=== PATIENT | female | born 1995 | race African-American/Black ===

== ENCOUNTER 2018-12-08 11:10 | Emergency (ER) | payer OTHER ==
[~2018-12-08] VITALS: Ht 167.6 cm; Wt 73.6 kg
[2018-12-08 11:23] VITALS: BP 115/69
--- NOTE | 2018-12-08 11:33 | NUR ---
PT AMBULATED TO ER BED 06
--- NOTE | 2018-12-08 11:40 | NUR ---
PT BIB SELF TO THE ED WITH THE CHIEF C/O HEADACHE AND LEFT NOSE BLEED SINCE LAST NIGHT. HAS NOT TAKEN ANY MEDS FOR PAIN. PT IS 29 WEEKS . HEART TONE HEARD TO 144 B/MIN. PT IS TAKING VITAMINS. REPORTS VOMIT X2. NO BLOOD IN VOMIT. DENIES NAUSEA OR DIARRHEA AT THIS TIME. DENIES ANY RECENT FEVER. DENIES ANY PAIN AT THIS TIME. POSITIONED FOR COMFORT. VSS ON MONITOR.
--- NOTE | 2018-12-08 11:59 | NUR ---
PT BEING EVALUATED BY ER AT THIS TIME.
[2018-12-08] MEDS ORDERED: ACETAMINOPHEN 325 MG TAB PO ONE (12:05)
[2018-12-08] MEDS ORDERED: NACL 0.9% 1,000 ML IV ONE (12:05)
--- NOTE | 2018-12-08 12:16 | NUR ---
LAB AT THE BEDSIDE.
[2018-12-08 12:34] LABS: BASOPHILS % (AUTO) 0.3 % (0.0-2.0); EOSINOPHILS # (AUTO) 0.1 K/uL (0-0.4); HEMATOCRIT 32.8 % (36-48); HEMOGLOBIN 10.9 g/dL (12.0-16.0); LYMPHOCYTES # (AUTO) 2.1 K/uL (2.5-16.5); MEAN CORPUSCULAR HEMOGLOBIN 28 pg (27-31); MEAN CORPUSCULAR HGB CONC 33 g/dL (33-37); MEAN CORPUSCULAR VOLUME 82.9 fL (80-94); MONOCYTES # (AUTO) 0.9 K/uL (0.8-1.0); MONOCYTES % (AUTO) 10.2 % (1.7-9.3); NEUTROPHILS % (AUTO) 65.5 % (42.2-75.2); PLATELET COUNT (AUTO) 179 K/uL (140-450); RED BLOOD CELL COUNT(AUTO) 3.95 MIL/uL (4.20-5.40); RED CELL DISTRIBUTION WIDTH 14.7 % (11.6-13.7); WHITE BLOOD COUNT (AUTO) 9.1 K/uL (4.8-10.8)
[2018-12-08 12:39] LABS: APPEARANCE,URINE SL CLOUDY (CLEAR); BILIRUBIN,URINE NEGATIVE (NEGATIVE); BLOOD, URINE NEGATIVE (NEGATIVE); COLOR,URINE YELLOW (YELLOW); NITRITE, URINE NEGATIVE (NEGATIVE); UGLUCOSE NEGATIVE (NEGATIVE)
[2018-12-08 12:43] LABS: RBC,URINE 0-5 /HPF (0-5)
[2018-12-08 12:46] LABS: WBC,URINE 0-5 /HPF (0-5)
[2018-12-08 12:48] LABS: LEUKOCYTE ESTERASE ,URINE 1+ (NEGATIVE)
[2018-12-08 13:04] LABS: PROTHROMBIN TIME 8.8 secs (10.8-13.4)
--- NOTE | 2018-12-08 13:09 | NUR ---
PT DENIES ANY NAUSEA OR VOMITING. STATES MILD HEADACHE. TURN THE LIGHT OFF. PT WAS GIVEN TYLENOL EARLIER. WILL EVALUATE HEADACHE LATER.
[2018-12-08 13:25] LABS: ALBUMIN 2.4 g/dL (3.4-5.0); CREATININE 0.6 mg/dL (0.6-1.3); TOTAL BILIRUBIN 0.2 mg/dL (0.0-1.0)
[2018-12-08 13:33] LABS: ANION GAP 14.2 (8-16); CARBON DIOXIDE 23.8 mmol/L (21-32)
--- NOTE | 2018-12-08 13:36 | NUR ---
Patient appears to be resting in bed. Vital Signs within normal limits. Respirations even and unlabored.
--- NOTE | 2018-12-08 13:52 | NUR ---
PT RE-EVALUATED BY AKBAR WOODY.
[2018-12-08] MEDS ORDERED: MORPHINE SULFATE 4 MG/ML SYR IVP ONE (14:15)
--- NOTE | 2018-12-08 16:01 | NUR ---
NO NOSE BLEED NOTED TILL THIS TIME. PT DENIES N/V. DENIES PAIN. VSS.
--- NOTE | 2018-12-08 16:14 | NUR ---
Patient discharged with v/s stable. Written and verbal after care instructions given and explained. Patient verbalized understanding. Ambulatory with steady gait. All questions addressed prior to discharge. Advised to follow up with PMD.
[2018-12-08 16:15] VITALS: BP 112/68
== END 2018-12-08 16:14 | disposition home or self-care (01) ==
LOC: MED 11:10
DX: R51 Headache (principal); M43.6 Torticollis; R04.0 Epistaxis; Z86.2 Personal history of diseases of the blood and blood-forming organs and certain disorders involving the immune mechanism
CPT/HCPCS: 36415; 80053; 81001; 81025; 85025; 85610; 87086; 96374; 99283; J2270; J7030